=== PATIENT | male | born 1945 | race Caucasian/White ===

== ENCOUNTER 2017-08-26 14:13 | Inpatient (IN) | payer MEDICARE, BC ==
[2017-08-26] MEDS ORDERED: MORPHINE SULFATE 4 MG/ML SYRG IV ONE ×3 (14:32→18:25)
[2017-08-26] MEDS ORDERED: ONDANSETRON HCL/PF 2 MG/ML VIAL IV ONE ×2 (14:32→18:35)
--- NOTE | 2017-08-26 14:36 | ERNOTE ---
Abdominal HPI - General Chief Complaint: Abdominal Pain Time Seen by Provider: 08/26/17 14:17 Source: patient Exam Limitations: no limitations - Immun/Allergies/Home Medications Allergies/Adverse Reactions: Allergies Penicillins Allergy (Verified 08/26/17 14:20) Home Medications: HOME MEDICATIONS Allopurinol [Zyloprim] 100 mg PO DAILY 06/30/13 [Last Taken 10/13/13 09:00] Ascorbic Acid [Vitamin C] 1,000 mg PO DAILY 08/26/17 [Last Taken Unknown] Fluticasone/Vilanterol [Breo Ellipta 100-25 Mcg INH] 1 inh INH DAILY 08/26/17 [ Last Taken Unknown] Glucosam/Chondr/Collagn/Hyalur [Glucosamine & Chondroitin Cap] 1 each PO DAILY 08/26/17 [Last Taken Unknown] Prednisone 30 mg PO DAILY 08/26/17 [Last Taken Unknown] - History of Present Illness Narrative: Patient started to have upper abdominal pain this morning, no clear initiating factors, trying pepto bismol made it worse, never had similar symptoms or any other abdominal problems in the past. He has had an unexplained cough for about four years. Recently he has had more secretions and shortness of breath and was started on a prednisone taper by his doctor two days ago. Date (Duration): 08/26/17 Time (Timing): 10:00 Timing: constant, getting worse Quality: moderate, aching Activities at Onset: none Modifying Factors - (Improves): Present: lying down Modifying Factors - (Worsens): Present: sitting up. Absent: breathing, coughing , movement Associated Symptoms: Absent: headache, back pain, chest pain, diarrhea-mucous, fever/chills, heartburn, nausea, vomiting Prior Treatment: Present: recently seen. Absent: currently on antibiotics Review of Systems - Review of Systems Constitutional: Absent: fever, chills EYE: Absent: vision changes ENT: Present: nose congestion, nasal drainage. Absent: ear pain, sore throat Respiratory: Absent: shortness of breath, cough Cardiology: Absent: chest pain Gastrointestinal/Abdominal: Present: See HPI, abdominal pain. Absent: nausea, vomiting, diarrhea, constipation Genitourinary: Present: no symptoms reported Musculoskeletal: Absent: back pain Skin: Absent: rash Neurological: Absent: headache, weakness, numbness - Patient's Past Medical History Patient History - Medical: Other - gout Patient History - Cardiac/Respiratory: Hypertension Patient History - Cancer: No Hx of Cancer Patient History - Surgical Procedures: T & A, Other, Orthopedic Patient History - Other: None - Social History Living Situations: home Abuse History: No History of abuse Psych History: No pertinent hx Smoking Status: Never smoker Alcohol Use: occasionally Drug Use: none - Immunizations Immunizations Up to Date: Yes Hx Pneumococcal Vaccination: Yes History of Influenza Vaccine: No Physical Exam - Physical Exam General Appearance: Present: wd/wn, alert, mild distress - uncomfortable Respiratory: Present: no respiratory distress, normal breath sounds, no accessory muscle use, lungs clear Cardiovascular/Chest: Present: regular rate, rhythm, no murmur Gastrointestinal/Abdominal: Present: soft, tenderness - diffuse upper abdomen, abnormal bowel sounds - decreased, distended Extremity Exam: Present: no edema Neurological Exam: Present: alert, oriented, normal mood/affect Skin Exam: Present: normal color, warm/dry ED Progress - Results and Orders Patient's Lab Results:: I have reviewed the patient's lab results. - Vital Signs Patient's Vital Signs:: I have reviewed the patient's vital signs. Vital Signs: Vital Signs 08/26/17 14:16 Temperature 36.0 C L Pulse Rate 75 Respiratory 12 Rate Blood Pressure 145/88 O2 Sat by Pulse 98 Oximetry - EKG EKG: NSR, unchanged from, other - no acute changes EKG read: Interp. by me - X-Ray X-Ray #1 X-Ray: abdomen - no free air, abnormal gas pattern Interpretation: Reviewed by me - CT/Ultrasound CT/Ultrasound Narrative: CT abdomen/pelvis: small bowel obstruction, see report - Progress/Reassessment Chief Complaint: Abdominal Pain Progress Note-Subjective: 08/26/17 15:26 discussed test results with patient, recommended CT pain better after morphine (3/10) 08/26/17 16:07 tolerating po contrast, no nausea, pain increased with taking po, denies need for pain meds 08/26/17 18:[address] Donahue (surgery), no contraindication for admission here 08/26/17 18:[address] Groev, okay to admit for observation, NPO, IV fluids 08/26/17 18:25 discussed test results and plan with patient, agreed to admission Departure Clinical Impression: Small bowel obstruction - Departure Disposition: [facility] Condition: Good
[2017-08-26] MEDS ORDERED: ONDANSETRON HCL/PF 2 MG/ML VIAL ONE ×2 (14:46→18:35)
[2017-08-26] MEDS ORDERED: MORPHINE SULFATE 4 MG/ML SYRG ONE ×3 (14:46→18:30)
[2017-08-26 14:49] LABS: Hematocrit 42.1 % (42.0-52.0); Hemoglobin 14.2 gm/dL (13.5-18.0); Mean Cell Volume 78.1 fl (78-100); Mean Corpuscular Hemoglobin 26.3 pg (27-31); Mean Corpuscular Hgb Conc 33.7 g/dl (32-36); Mean Platelet Volume 8.8 fl (6.0-9.5); Neutrophil # 9.5 K/mm3 (1.3-6.0); Neutrophil % 88.1 % (42-75.0); Platelet Count 292 K/mm3 (150-450); Red Blood Count 5.39 M/mm3 (4.7-6.0); Red Cell Distribution Width 15.4 % (11.5-14.0); White Blood Count 10.8 K/mm3 (4.0-10.5)
[2017-08-26 15:06] LABS: ALT 31 U/L (19-67); AST 15 U/L (0-48); Albumin * 3.9 gm/dl (3.4-5.0); Alkaline Phosphatase * 83 U/L (50-170); Amylase * 49 U/L (25-115); Anion Gap 12.2 mmol/L (6.8-13.8); BUN/Creatinine Ratio 21.5 (9.0-21.6); Bilirubin, Total 0.6 mg/dL (0.0-1.1); Blood Urea Nitrogen 28 mg/dL (6-23); Ca. Corrected For Albumin 9.9 mg/dL (8.4-10.2); Calcium * 10.1 mg/dL (7.9-10.9); Carbon Dioxide 27.1 mmol/L (24-32.6); Chloride 102 mmol/L (97-106); Glucose * 140 mg/dL (70-110); Lipase 115 U/L (73-393); Potassium 4.3 mmol/L (3.4-4.6); Sodium 137 mmol/L (132-142); Total Protein 8.2 gm/dL (6.2-8.2); Troponin I Less than 0.017 ng/ml (0.00-0.10)
[2017-08-26] MEDS ORDERED: DIATRIZOATE MEGLUMINE, SODIUM 30 ML BTL PO ONE (15:27)
[2017-08-26] MEDS ORDERED: DIATRIZOATE MEGLUMINE, SODIUM 30 ML BTL ONE (15:28)
[2017-08-26 15:44] LABS: Urine Bilirubin Negative (NEGATIVE); Urine Blood Negative /ul (NEGATIVE); Urine Ketone Negative (NEGATIVE); Urine Nitrite Negative (NEGATIVE); Urine Protein Negative (NEGATIVE); Urine Specific Gravity 1.025 SP.GR. (1.005-1.030); Urine Urobilinogen Normal (NORMAL); Urine pH 5.5 pH (5.0-7.0)
[2017-08-26 15:56] LABS: Urine Appearance Clear; Urine Bacteria TRACE; Urine Color Yellow; Urine RBC None Seen /hpf (0-5); Urine WBC None Seen /hpf (0-5)
[2017-08-26] MEDS ORDERED: ONDANSETRON HCL/PF 2 MG/ML VIAL IV PRN (18:46)
[2017-08-26] MEDS ORDERED: MORPHINE SULFATE 4 MG/ML SYRG IV PRN (18:46)
[2017-08-26] MEDS ORDERED: PROMETHAZINE HCL 5 MG in DEXTROSE 5 % IN WATER 50 ML IV PRN ×2 (18:46)
[2017-08-26] MEDS ORDERED: NORMAL SALINE 1,000 ML IV ONE (18:47)
[2017-08-26] MEDS: KETOROLAC TROMETHAMINE 15 MG/ML VIAL IV PRN (19:30)
--- NOTE | 2017-08-26 20:27 | HP ---
Chief Complaint - Chief Complaint Date of Service: 08/26/17 Time of Service: 20:21 Chief Complaint: "Abdominal Pain, Vomiting, feeling bloated". Source of HPI- Pt ; reliable, ERP notes. History of Present Illness: Mr. Davalos is a 71-yr-old WM pt of Dr. William Ortiz with a PMH of: Asthma, Cellulitis, Gout, Kidney Stones & Osteoarthritis. 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 Then around 10.00 am, he suddenly developed abdominal pain. He sat in the recliner to rest but the pain never went away. He tried some Peptobismal but that did not ease the pain. The pain got worse as time went by and finally chose to come to the ED around 2pm. He states that the location of the pain was on the umbilical area and without radiation. The pain 'felt dull and tight.' He denies the associated symptoms of Nausea, vomiting, diarrhea, fever and chills. He states that since his kidney stone surgery 5 yrs ago, he drinks plenty of water daily. However, within the last 2-3 weeks, he has noticed that even drinking '1 bottle of water causes him to feel very bloated.' He states that he feels the same way with foods. At the ED, the abdominal X-ray showed he had abnormal gas pattern and stool retention. Follow-up with CT abdomen revealed Small Bowel Obstruction. Surgery consulted by the ERP and is aware of the pt's status. He will need to be admitted inpatient for a minimum of 2 midnights for SBO which needs identification of it's etiology and he may require surgical intervention depending on clinical condition. - Patient's Past Medical History Patient History - Medical: Other Patient History - Cardiac/Respiratory: Hypertension Patient History - Cancer: No Hx of Cancer Patient History - Surgical Procedures: T & A, Other, Orthopedic Patient History - Other: None - Family History Mother Family History - Medical: - at 90 yrs Family History - Cancer: Breast Father Family History - Medical: - at 62 yrs Family History - Cancer: Myeloma - Social History Living Situations: alone Abuse History: No History of abuse Psych History: No pertinent hx Smoking Status: Never smoker Have you smoked in the past 12 months: No Do you dip or chew tobacco: No Alcohol Use: occasionally Drug Use: none - Immunizations Immunizations Up to Date: Yes Hx Pneumococcal Vaccination: Yes History of Influenza Vaccine: No Review Of Systems (GEN) - Review of Systems Generalized/Overall Review: Present: Malaise. Absent: Weakness, Chills, Fever, Diaphoresis, Fatigue, Weight loss EENTM: Present: Nose Congestion. Absent: Eye Pain, Blurred Vision, Double Vision Respiratory: Present: Cough, Shortness of Breath. Absent: Orthopnea, Stridor Cardiac: Absent: Chest Pain, Edema, Palpitations, Syncope Abdominal: Present: Nausea, Vomiting, Abdominal Pain. Absent: Hematemesis, Constipation, Diarrhea, Melena, Bright blood from rectum Genitourinary: Present: Frequency, Hesitancy, Dribbling Musculoskeletal: Present: Joint Pain. Absent: Back Pain, Joint Swelling Neurological: Absent: Headache, Anxiety, Depressed, Emotional Problems, Tremors , Weakness Skin: Absent: Dryness, Lesions, Lumps, Bruising Endocrine: Present: Increased Thirst. Absent: Intolerance to Cold, Flushing Misc: All systems neg except as marked Immunizations: IMMUNIZATION HX Immunizations Up to Date Yes History of Influenza Vaccine No Hx Pneumococcal Vaccination Yes Allergies/Adverse Reactions: Allergies Allergy/AdvReac Type Severity Reaction Status Date / Time Penicillins Allergy Verified 08/26/17 14:20 Home Medications: HOME MEDICATIONS Allopurinol [Zyloprim] 100 mg PO DAILY 06/30/13 [Last Taken 10/13/13 09:00] Ascorbic Acid [Vitamin C] 1,000 mg PO DAILY 08/26/17 [Last Taken Unknown] Fluticasone/Vilanterol [Breo Ellipta 100-25 Mcg INH] 1 inh INH DAILY 08/26/17 [ Last Taken Unknown] Glucosam/Chondr/Collagn/Hyalur [Glucosamine & Chondroitin Cap] 1 each PO DAILY 08/26/17 [Last Taken Unknown] Prednisone 30 mg PO DAILY 08/26/17 [Last Taken Unknown] Albuterol Sulfate [Ventolin Hfa] 18 gm IH Q4H PRN 08/27/17 [Last Taken Unknown] Azithromycin 250 mg PO DAILY 08/27/17 [Last Taken Unknown] Cyanocobalamin (Vitamin B-12) [B-12] 1,000 mcg PO DAILY 08/27/17 [Last Taken Unknown] Fluticasone Propionate [Flonase] 50 mcg NS DAILY 08/27/17 [Last Taken Unknown] Guaifenesin/Pseudoephedrne HCl [Mucinex D ER 600-60 mg Tablet] 1 each PO Q12H [Last Taken Unknown] Montelukast Sodium [Singulair] 10 mg PO HS 08/27/17 [Last Taken Unknown] Tumeric 1 tab PO DAILY 08/27/17 [Last Taken Unknown] Exam - Exam Vital Signs: Vital Signs - Last Taken Temp 36.4 C L 08/26/17 19:03 Pulse 72 08/26/17 19:03 Resp 22 H 08/26/17 19:03 BP 109/68 08/26/17 19:03 Pulse Ox 97 08/26/17 19:03 Constitutional: Present: Alert, Oriented x3, Cooperative, No distress ENT Exam: Present: normal ENT inspection, hard of hearing Eye Exam: bilateral eye: normal inspection, PERRL Neck: Present: non-tender, full range of motion, supple Back Exam: Present: normal inspection, no CVA tenderness Breasts: Present: Exam deferred Respiratory: Present: lungs clear, No rales, No wheezing Cardiovascular/Chest: Present: normal peripheral pulses, regular rate, rhythm, no chest tenderness, no edema, no murmur Abdomen: Present: Normal bowel sounds, no rebound tenderness, tender - umbilical region, firm, distended /Rectal: Present: Exam deferred Extremity: Present: normal range of motion, non-tender, normal inspection Skin Exam: Present: warm/dry, other - scattered vitiligo Lymphatic: Present: no adenopathy Neurologic: Present: alert, normal mood/affect, oriented x 3 Appearance: Present: appropriate appearance, appropriate insight Eye contact: Present: cooperative, good eye contact, normal speech Thoughts: Present: normal thought pattern, no apparent hallucination Diagnostic Studies: Laboratory Results WBC 10.8 K/mm3 (4.0-10.5) H 08/26/17 14:43 RBC 5.39 M/mm3 (4.7-6.0) 08/26/17 14:43 Hgb 14.2 gm/dL (13.5-18.0) 08/26/17 14:43 Hct 42.1 % (42.0-52.0) 08/26/17 14:43 MCV 78.1 fl (78-100) 08/26/17 14:43 MCH 26.3 pg (27-31) L 08/26/17 14:43 MCHC 33.7 g/dl (32-36) 08/26/17 14:43 RDW 15.4 % (11.5-14.0) H 08/26/17 14:43 Plt Count 292 K/mm3 (150-450) 08/26/17 14:43 MPV 8.8 fl (6.0-9.5) 08/26/17 14:43 Immature Gran % (Auto) 0.90 % (0.001-0.429) H 08/26/17 14:43 Immature Gran # (Auto) 0.10 K/mm3 (0.000-0.0310) H 08/26/17 14:43 Neutrophils % 88.1 % (42-75.0) H 08/26/17 14:43 Lymphocytes % 6.5 % (20-51) L 08/26/17 14:43 Monocytes % 4.3 % (0.0-9) 08/26/17 14:43 Eosinophils % 0.0 % (0.0-3.0) 08/26/17 14:43 Basophils % 0.2 % (0.0-1.0) 08/26/17 14:43 Nucleated RBC % 0.0 k/mm3 (0-1) 08/26/17 14:43 Neutrophils # 9.5 K/mm3 (1.3-6.0) H 08/26/17 14:43 Lymphocytes # 0.7 k/mm3 (1.5-3.5) L 08/26/17 14:43 Monocytes # 0.5 k/mm3 (0.0-1.0) 08/26/17 14:43 Eosinophils # 0.0 k/mm3 (0.0-0.7) 08/26/17 14:43 Absolute Basophils 0.0 k/mm3 (0.0-0.1) 08/26/17 14:43 Sodium 137 mmol/L (132-142) 08/26/17 14:43 Plasma Sodium 138 mmol/L (130-142) 08/26/17 14:43 Potassium 4.3 mmol/L (3.4-4.6) 08/26/17 14:43 Chloride 102 mmol/L (97-106) 08/26/17 14:43 Carbon Dioxide 27.1 mmol/L (24-32.6) 08/26/17 14:43 Anion Gap 12.2 mmol/L (6.8-13.8) 08/26/17 14:43 BUN 28 mg/dL (6-23) H 08/26/17 14:43 Creatinine 1.30 mg/dL (0.4-1.4) 08/26/17 14:43 Est GFR (Non-Af Amer) 58 mL/min (60-130) L 08/26/17 14:43 BUN/Creatinine Ratio 21.5 (9.0-21.6) 08/26/17 14:43 Random Glucose 140 mg/dL (70-110) H 08/26/17 14:43 Calcium 10.1 mg/dL (7.9-10.9) 08/26/17 14:43 Calcium Adj for Albumin 9.9 mg/dL (8.4-10.2) 08/26/17 14:43 Total Bilirubin 0.6 mg/dL (0.0-1.1) 08/26/17 14:43 AST 15 U/L (0-48) 08/26/17 14:43 ALT 31 U/L (19-67) 08/26/17 14:43 Alkaline Phosphatase 83 U/L (50-170) 08/26/17 14:43 Troponin I Less than 0.017 ng/ml (0.00-0.10) 08/26/17 14:43 Total Protein 8.2 gm/dL (6.2-8.2) 08/26/17 14:43 Albumin 3.9 gm/dl (3.4-5.0) 08/26/17 14:43 Amylase 49 U/L (25-115) 08/26/17 14:43 Lipase 115 U/L (73-393) 08/26/17 14:43 Urine Color Yellow 08/26/17 15:23 Urine Appearance Clear 08/26/17 15:23 Urine pH 5.5 pH (5.0-7.0) 08/26/17 15:23 Ur Specific [place] 1.025 SP.GR. (1.005-1.030) 08/26/17 15:23 Urine Protein Negative mg/dL (NEGATIVE) 08/26/17 15:23 Urine Glucose (UA) Negative mg/dL (NEGATIVE) 08/26/17 15:23 Urine Ketones Negative mg/dL (NEGATIVE) 08/26/17 15:23 Urine Blood Negative /ul (NEGATIVE) 08/26/17 15:23 Urine Nitrate Negative (NEGATIVE) 08/26/17 15:23 Urine Bilirubin Negative mg/dl (NEGATIVE) 08/26/17 15:23 Urine Urobilinogen Normal EU/dl (NORMAL) 08/26/17 15:23 Ur Leukocyte Esterase Negative /ul (NEGATIVE) 08/26/17 15:23 Urine RBC None seen /hpf (0-5) 08/26/17 15:23 Urine WBC None seen /hpf (0-5) 08/26/17 15:23 Ur Epithelial Cells Trace /hpf (0-5) 08/26/17 15:23 Urine Bacteria Trace (NONE) 08/26/17 15:23 Urine Culture Comments No culture indicated 08/26/17 15:23 Assessment/Plan - Assessment/Plan (1) Small bowel obstruction Assessment: Pt's abdominal CT showed SBO. No S/S of clinical deterioration e.g (continuous pain, fevers, tachycardia, hypotension and severe rebound pain) since coming to the ER and while on the [facility] [place] floor. ERP spoke to the Surgeon Dr. Soliman about pt's status and he will evaluate pt in am. Has no indications for immediate surgery and therefore will provide non-operative management with: IVF hydration, NG tube to LIS to decompress bowel, pain control and antiemetics. SBO etiology- Pt has no previous abdominal operations to cause suspicion of adhesions. Could likely be from: Hernia, Neoplasm, or gallstone illeus Monitor closely- CT findings of mild bowel wall thickening and mesenteric edema can be concerning for Ischemia. Problem: Acute (2) Constipation Assessment: Abdominal X-ray showed stool retention- will give stimulant laxatives tonight with Senna and Dulcolax supp. Problem: Acute (3) BPH (benign prostatic hyperplasia) Assessment: Reports after stopping urination, the urine stream will start several times again. Has mild symptoms and AUASI score of < 8 and therefore watchful waiting is appropriate. Currently on Flomax Problem: Suspected (4) Gout Assessment: Stable- On Allopurinal. Problem: Chronic (5) Osteoarthritis Problem: Chronic (6) Asthma Assessment: Stable- Will add prn nebs. Continue Ventolin inhaler and singulair Problem: Chronic
[2017-08-26] MEDS ORDERED: BISACODYL 10 MG SUPP.RECT RC ONE (20:50)
[2017-08-26] MEDS: SENNOSIDES 8.6 MG TABLET PO SCH (21:39)
[2017-08-26] MEDS: POTASSIUM CHLORIDE 20 MEQ in DEXTROSE 5%-NORMAL SALINE 990 ML IV SCH (21:40)
[2017-08-27] MEDS ORDERED: ALBUTEROL SULFATE 60 PUFF INHALER IH PRN (01:02)
[2017-08-27] MEDS ORDERED: PHENOL 180 SPRAY BTL MM PRN (02:14)
[2017-08-27] MEDS: POTASSIUM CHLORIDE 20 MEQ in DEXTROSE 5%-NORMAL SALINE 990 ML IV SCH ×3 (04:23→20:46)
[2017-08-27 06:07] LABS: Anion Gap 9.9 mmol/L (6.8-13.8); BUN/Creatinine Ratio 25.6 (9.0-21.6); Carbon Dioxide 29.3 mmol/L (24-32.6); Estimated Creat Clear 59.2; Potassium 4.2 mmol/L (3.4-4.6)
[2017-08-27 06:17] LABS: Hematocrit 39.8 % (42.0-52.0); Mean Cell Volume 80.4 fl (78-100); Mean Corpuscular Hemoglobin 26.3 pg (27-31); Mean Corpuscular Hgb Conc 32.7 g/dl (32-36); Neutrophil # 6.7 K/mm3 (1.3-6.0); Platelet Count 248 K/mm3 (150-450); Red Blood Count 4.95 M/mm3 (4.7-6.0); Red Cell Distribution Width 15.9 % (11.5-14.0); White Blood Count 8.4 K/mm3 (4.0-10.5)
[2017-08-27] MEDS ORDERED: ALBUTEROL SULFATE 2.5 MG/0.5 ML VIAL.NEB IH PRN (06:23)
[2017-08-27] MEDS: KETOROLAC TROMETHAMINE 15 MG/ML VIAL IV PRN (06:31)
[2017-08-27] MEDS ORDERED: AZITHROMYCIN 250 MG TABLET PO SCH (09:00)
[2017-08-27] MEDS ORDERED: NON-FORMULARY 1 DOSE DOSE (Fluticasone/Vilanterol [Breo Ellipta 100-25 Mcg Inh] 1 INH) INH SCH ×2 (09:00)
[2017-08-27] MEDS: FLUTICASONE/SALMETEROL 14 PUFF DISK.W.DEV IH SCH ×2 (09:30→20:54)
[2017-08-27] MEDS: FLUTICASONE PROPIONATE 120 SPRAY INHALER NS SCH (09:31)
[2017-08-27] MEDS: predniSONE 10 MG TABLET PO SCH (09:31)
--- NOTE | 2017-08-27 10:01 | PN ---
Subjective - Date and Time Seen Date: 08/27/17 Time: 09:52 Subjective Narrative: Pt. states he feels much better today after having over a liter of material out with the NGT. He feels his abdomen rumbling more and has passed flatus x 1, no BM. The NGT is the only thing that bothers him. Denies cough or troubles breathing. He states he hasn't had any abdominal surgeries or severe injuries to abdomen or infections in the past. Objective Objective Narrative: Walking in halls, with NGT in place. - Review of Systems Generalized/Overall Review: Denies: Chills, Fever, Malaise EENTM: Reports: No Symptoms Reported Respiratory: Denies: Cough, Shortness of Breath Cardiac: Reports: No Symptoms Reported Abdominal: Reports: Abdominal Pain, Other - no BM, some flatus.. Denies: Vomiting, Hematemesis, Constipation, Diarrhea Genitourinary Symptoms: Reports: No Symptoms Reported Musculoskeletal Complaints: Reports: No Symptoms Reported Neurological: Reports: No Symptoms Reported Skin: Reports: No Symptoms Reported Endocrine: Reports: No Symptoms Reported - Vitals Vitals: Last Vital Signs Temp 36.8 C 08/27/17 06:35 Pulse 76 08/27/17 06:35 Resp 14 08/27/17 06:35 BP 118/71 08/27/17 06:35 Pulse Ox 94 08/27/17 06:35 - Abnormal Lab Findings Abnormal Lab Findings: Abnormal Lab Results 08/27/17 08/27/17 Range/Units 05:53 05:53 Hgb 13.0 L (13.5-18.0) gm/dL Hct 39.8 L (42.0-52.0) % MCH 26.3 L (27-31) pg RDW 15.9 H (11.5-14.0) % Immature Gran % (Auto) 0.50 H (0.001-0.429) % Immature Gran # (Auto) 0.04 H (0.000-0.0310) K/mm3 Neutrophils % 80.0 H (42-75.0) % Lymphocytes % 7.1 L (20-51) % Monocytes % 10.8 H (0.0-9) % Neutrophils # 6.7 H (1.3-6.0) K/mm3 Lymphocytes # 0.6 L (1.5-3.5) k/mm3 BUN 34 H (6-23) mg/dL Est GFR (Non-Af Amer) 57 L (60-130) mL/min BUN/Creatinine Ratio 25.6 H (9.0-21.6) - Exam Constitutional: Present: Alert, Oriented x3, Cooperative, No distress ENT Exam: Present: hearing grossly normal Neck: Present: supple Respiratory: Present: chest non-tender, lungs clear, normal breath sounds, no respiratory distress, no accessory muscle use Cardiovascular/Chest: Present: regular rate, rhythm, no murmur Abdomen: Present: Normal bowel sounds, soft, nontender, no rebound tenderness, no hepatospenomegaly, distended Extremity: Present: no calf tenderness. Absent: lower extremity edema Skin Exam: Present: normal color Neurologic: Present: normal mood/affect, oriented x 3 Appearance: Present: appropriate appearance, appropriate insight Eye contact: Present: cooperative, good eye contact, normal speech Thoughts: Present: normal thought pattern, no apparent hallucination Assessment/Plan - Problems/Diagnosis (1) Small bowel obstruction Problem: Acute Narrative: given the flatus and the active BS and less distension of his abdomen, it appears the SBO may be resolving. Will leave the NGT in place for now, but give him a trial with clear liquids. If sx continue to improve and especially if he has a BM, we'll consider removing the NGT this pm, but keep him on clears for a couple more days. continue IVF for now. (2) Asthma Problem: Chronic Qualifiers: Asthma severity: moderate Asthma persistence: persistent Asthma complication type: with acute exacerbation Qualified Code(s): J45.41 - Moderate persistent asthma with (acute) exacerbation Narrative: neb tx, can stop the zithromax after today as this was given for a bronchitis, which appears to be resolving. (3) Osteoarthritis Problem: Chronic Qualifiers: Osteoarthritis type: primary Laterality: unspecified laterality Narrative: pain control as needed, though it appears to be controlled at the moment. (4) BPH (benign prostatic hyperplasia) Problem: Suspected Narrative: no issues for the moment, continue meds unchanged. (5) Discharge planning issues Problem: Acute Narrative: anticipate if things continue to go well and improve he could be discharged in the am [id number].
--- NOTE | 2017-08-27 16:26 | CONS ---
HPI - General Date of Service: 08/27/17 Narrative: Pt had a sudden onset of abdominal pain yesterday at 1000. He presented to the ER and was found to have a small bowel obstruction. He was admitted and placed to gut rest with hydration. In the interval he has passed flatus and had a bowel movement and feels significantly better. Source: patient, RN/MD, old records Exam Limitations: no limitations - History of Present Illness Allergies/Adverse Reactions: Allergies Penicillins Allergy (Verified 08/26/17 14:20) Home Medications: Home Medications Medication Instructions Recorded Last Taken Allopurinol [Zyloprim] 100 mg PO DAILY 06/30/13 10/13/13 09:00 Ascorbic Acid [Vitamin C] 1,000 mg PO DAILY 08/26/17 Unknown Fluticasone/Vilanterol [Breo 1 inh INH DAILY 08/26/17 Unknown Ellipta 100-25 Mcg INH] Glucosam/Chondr/Collagn/Hyalur 1 each PO DAILY 08/26/17 Unknown [Glucosamine & Chondroitin Cap] Prednisone 30 mg PO DAILY 08/26/17 Unknown Albuterol Sulfate [Ventolin Hfa] 18 gm IH Q4H PRN 08/27/17 Unknown Azithromycin 250 mg PO DAILY 08/27/17 Unknown Cyanocobalamin (Vitamin B-12) 1,000 mcg PO DAILY 08/27/17 Unknown [B-12] Fluticasone Propionate [Flonase] 50 mcg NS DAILY 08/27/17 Unknown Guaifenesin/Pseudoephedrne HCl 1 each PO Q12H 08/27/17 Unknown [Mucinex D ER 600-60 mg Tablet] Montelukast Sodium [Singulair] 10 mg PO HS 08/27/17 Unknown Tumeric 1 tab PO DAILY 08/27/17 Unknown - Patient's Past Medical History Patient History - Medical: Other Patient History - Cardiac/Respiratory: Hypertension Patient History - Cancer: No Hx of Cancer Patient History - Surgical Procedures: T & A, Other, Orthopedic Patient History - Other: None - Family History Mother Family History - Medical: - at 90 yrs Family History - Cancer: Breast Father Family History - Medical: - at 62 yrs Family History - Cancer: Myeloma - Social History Living Situations: alone Abuse History: No History of abuse Psych History: No pertinent hx Smoking Status: Never smoker Have you smoked in the past 12 months: No Do you dip or chew tobacco: No Alcohol Use: occasionally Drug Use: none - Immunizations Immunizations Up to Date: Yes Hx Pneumococcal Vaccination: Yes History of Influenza Vaccine: No Procedures CLOSURE SKIN & SUBCUTANEOUS NEC (06/30/13) OP RED-INT FIX TIB/FIBUL (10/13/13) Medications - Medications Current Medications: Current Medications Fluticasone Propionate (Flonase) 1 spray NS DAILY NABILA Stop: 09/26/17 09:01 Last Admin: 08/27/17 09:31 Dose: 1 spray Promethazine HCl 5 mg/ (Dextrose/Water) 50.2 mls @ 200 mls/hr IV Q4H PRN PRN Reason: Nausea Stop: 09/25/17 18:47 Last Infusion: 08/26/17 20:06 Dose: Infused Potassium Chloride 20 meq/ (Dextrose/Sodium Chloride) 1,000 mls @ 125 mls/hr IV .Q8H NABILA Stop: 09/25/17 21:01 Last Admin: 08/27/17 12:30 Dose: 125 mls/hr Ketorolac Tromethamine (Toradol) 15 mg IV Q6H PRN PRN Reason: Pain Stop: 08/31/17 18:47 Last Admin: 08/27/17 06:31 Dose: 15 mg Phenol/Menthol (Chloraseptic) 1 spray MM PRN PRN PRN Reason: Sore Throat Stop: 09/26/17 02:15 Last Admin: 08/27/17 03:20 Dose: 1 spray Prednisone (Prednisone) 30 mg PO DAILY NABILA Stop: 09/26/17 09:01 Last Admin: 08/27/17 09:31 Dose: 30 mg Fluticasone/Salmeterol (Advair 250-50 Diskus) 1 puff IH BID NABILA Stop: 09/26/17 09:01 Last Admin: 08/27/17 09:30 Dose: 1 puff Senna (Senokot) 17.2 mg PO HS NABILA Stop: 09/25/17 21:01 Last Admin: 08/26/17 21:39 Dose: 17.2 mg Review of Systems - Review of Systems Misc: All systems neg except as marked Physical Examination - Exam Vital Signs: Vital Signs - Last Taken Temp 37.2 C 08/27/17 14:51 Pulse 72 08/27/17 14:51 Resp 16 08/27/17 14:51 BP 125/65 08/27/17 14:51 Pulse Ox 93 08/27/17 14:51 O2 Oxygen Delivery Method Room Air Constitutional: Present: Alert, Oriented x3, Cooperative, Well developed, Well nourished, No distress ENT Exam: Present: normal ENT inspection Eye Exam: bilateral eye: normal inspection Neck: Present: normal inspection Respiratory: Present: no respiratory distress, no accessory muscle use Abdomen: Present: soft, nontender, nondistended Skin Exam: Present: normal color, warm/dry Neurologic: Present: no motor/sensory deficits Eye contact: Present: cooperative, good eye contact Thoughts: Present: normal thought pattern - Results and Findings: Lab/Microbiology results last 24 hrs: Abnormal/Pending Laboratory Last 24 HRS 08/27/17 08/27/17 05:53 05:53 Hgb 13.0 L Hct 39.8 L MCH 26.3 L RDW 15.9 H Immature Gran % (Auto) 0.50 H Immature Gran # (Auto) 0.04 H Neutrophils % 80.0 H Lymphocytes % 7.1 L Monocytes % 10.8 H Neutrophils # 6.7 H Lymphocytes # 0.6 L BUN 34 H Est GFR (Non-Af Amer) 57 L BUN/Creatinine Ratio 25.6 H - Assessments/Findings (1) Small bowel obstruction Diagnosis(s): Pt appears to be resolving his small bowel obstruction. Etiology is uncertain. Agree with Dr. Ortiz's plan. Problem: Acute
--- NOTE | 2017-08-27 18:59 | PN ---
Progess Note - Interim Narrative: 08/27/17 18:57 Assessed pt. this afternoon and he states pain is still ok. Continues to have flatus but no BM. Denies N/V. SBO unknown etiology - possibly from previous abdominal trauma or infection causing scarring. Will continue NGT without wall suction. Have Hospitalist assess him this pm and if he tolerates supper without problem, good BS and NT abdomen, will have her DC NGT.
[2017-08-27] MEDS: SENNOSIDES 8.6 MG TABLET PO SCH (20:54)
[2017-08-28] MEDS: POTASSIUM CHLORIDE 20 MEQ in DEXTROSE 5%-NORMAL SALINE 990 ML IV SCH (04:52)
[2017-08-28] MEDS: predniSONE 10 MG TABLET PO SCH (08:00)
[2017-08-28] MEDS: FLUTICASONE PROPIONATE 120 SPRAY INHALER NS SCH (08:00)
[2017-08-28] MEDS: FLUTICASONE/SALMETEROL 14 PUFF DISK.W.DEV IH SCH (08:00)
--- NOTE | 2017-08-28 10:26 | DS ---
(1) Small bowel obstruction Problem: Acute Description of Stay: Ajit is a 71 yo male admitted with small bowel obstruction. He was treated conservatively with bowel rest and improved. Surgery was consulted and agreed with conservative initial approach. He improved and diet was advanced with tolerance. He did well and was discharged to home. Overall unclear etiology , follow up in clinic in 1 week. Procedures Performed: none List Procedures: NG Tube Placement (08/26/17) and Removal (08/27/17) Discharge Disposition: Home self care Disposition: Home self-care Condition: Good Discharge Activity: Activity as tolerated Discharge Diet: General/regular food, High Fiber Referrals: William Ortiz MD [Primary Care Provider] - One Week Problem Oriented Discharge Instructions to Patient/Family: Small Bowel Obstruction, [id number] Additional Patient Instructions (free text): TCM appointment unless senior living discharge. Thank you! Yary @ ext:[phone]. Follow up appointment with Dr. Ortiz on 09/04/17 at 9:30am. Complete Home Medications List: Complete Home Medication List: Allopurinol [Zyloprim] 100 mg PO DAILY 06/30/13 Ascorbic Acid [Vitamin C] 1,000 mg PO DAILY 08/26/17 Fluticasone/Vilanterol [Breo Ellipta 100-25 Mcg INH] 1 inh INH DAILY 08/26/17 Glucosam/Chondr/Collagn/Hyalur [Glucosamine & Chondroitin Cap] 1 each PO DAILY 08/26/17 Prednisone 30 mg PO DAILY 08/26/17 Albuterol Sulfate [Ventolin Hfa] 18 gm IH Q4H PRN 08/27/17 Azithromycin 250 mg PO DAILY 08/27/17 Cyanocobalamin (Vitamin B-12) [B-12] 1,000 mcg PO DAILY 08/27/17 Fluticasone Propionate [Flonase] 50 mcg NS DAILY 08/27/17 Guaifenesin/Pseudoephedrne HCl [Mucinex D ER 600-60 mg Tablet] 1 each PO Q12H Montelukast Sodium [Singulair] 10 mg PO HS 08/27/17 Tumeric 1 tab PO DAILY 08/27/17
[2017-08-28] MEDS ORDERED: MORPHINE SULFATE 2 MG/ML DISP.SYRIN IV PRN (10:30)
[2017-08-28 10:45] VITALS: BP 144/76
== END 2017-08-28 13:35 | disposition home or self-care (01) | DRG 390 ==
LOC: ER 14:13 → MS 18:25 → OBSVTOIN 18:25
PROVIDERS: ADMIT Family Medicine; ATTEND Family Medicine
DX: K56.609 Unspecified intestinal obstruction, unspecified as to partial versus complete obstruction (principal); R53.1 Weakness; N40.0 Benign prostatic hyperplasia without lower urinary tract symptoms; M10.9 Gout, unspecified; I10 Essential (primary) hypertension
CPT/HCPCS: 36415; 74020; 74177; 80048; 80053; 81001; 82150; 83690; 84484; 85025; 93005; 96374; 96375; 99284; J2405